=== PATIENT | female | born 1985 | race Caucasian/White ===

== ENCOUNTER 2023-02-05 02:40 | Emergency (ER) | payer OTHER, SELFPAY ==
[2023-02-05] VITALS (7 sets, daily range): BP systolic 91–111; BP diastolic 49–74; PULSE 69–96; RESP 13–15; TEMP 36.6; O2SAT 98–100
--- NOTE | ~2023-02-05 | CT_ITS ---
EXAMINATION: CTA chest PE protocol DATE: 02/05/2023 05:39 INDICATION: Midsternal chest pain. Shortness of breath. TECHNIQUE: Computed tomography angiography (CTA) of the chest was performed with 100 mL Omnipaque-350 intravenous contrast timed to evaluate the pulmonary arteries. Coronal maximum intensity projection 3D-reconstructions were created by the technologist. Automated exposure control and iterative reconst ruction technique were employed. The dose-length product was 217.32 mGy-cm. COMPARISON: None. FINDINGS: There is no pneumonia or pleural effusion. The heart size is normal. No pericardial effusio n. There is no pulmonary embolus. There is mild thoracic spondylosis. IMPRESSION: 1. No pulmonary embolus. Reviewed, dictated and finalized at location A. IMPRESSION: 1. No pulmonary embolus.
--- NOTE | ~2023-02-05 | XR_ITS ---
EXAMINATION: XR chest 1V portable DATE: 02/05/2023 05:02 INDICATION: Chest pain. TECHNIQUE: A single frontal view of the chest was obtained. COMPARISON: Chest CT 02/05/2023 FINDINGS: There is no pneumonia, pleural effusion, or pneumothorax. The heart size is normal. IMPRESSION: 1. No acute cardiopulmonary disease. Reviewed, dictated and finalized at location A.
--- NOTE | 2023-02-05 02:57 | ECG_ITS ---
Measurements Intervals [place] Rate: 70 P: 53 WA: 117 QRS: 64 QRSD: 88 T: 61 QT: 368 QTc: 399 Interpretive Statements SINUS RHYTHM WITH SHORT WA INTERVAL WITHIN NORMAL LIMITS INTERPRETATION BASED ON A DEFAULT AGE OF 40 YEARS NO PREVIOUS ECG AVAILABLE FOR COMPARISON Electronically Signed On 02-05-2023 15:51:37 CDT by Brendan Barbosa M.D.
[2023-02-05 05:01] LABS: Alanine Aminotransferase 55 U/L (6-35); Albumin Level 3.8 g/dL (3.5-5.1); Alkaline Phosphatase 126 U/L (38-126); Anion Gap 10 mmol/L (8-16); Aspartate Amino Transferase 31 U/L (14-36); Bilirubin,Total 0.4 mg/dL (0.2-1.3); Blood Urea Nitrogen 26 mg/dL (7-17); Calcium 9.5 mg/dL (8.4-10.2); Carbon Dioxide 22 mmol/L (22-30); Chloride 101 mmol/L (98-107); Estimated Glomerular Filt Rate > 60; Glucose 87 mg/dL (65-110); Lipase 148 U/L (23-300); Magnesium 1.8 mg/dL (1.6-2.3); NT Pro B Type Natriuretic Pept < 20 pg/mL (19.9-100); Potassium 3.9 mmol/L (3.4-5.0); Sodium 133 mmol/L (137-145); Troponin I < 0.012 ng/mL (0.000-0.034)
[2023-02-05 05:06] LABS: Basophils Percent Auto 0.4 % (0.2-1.2); Eosinophils Absolute Auto 0.4 K/mm3 (0-0.3); Eosinophils Percent Auto 3.8 % (0-4.4); Hematocrit 35.8 % (37.0-47.0); Hemoglobin 11.4 g/dL (12.0-15.0); Immature Granulocyte Absolute 0.07 K/mm3 (0.00-0.031); Immature Granulocyte Percent A 0.8 % (0-0.5); Immature Platelet Fraction Pct 5.9 % (0.9-11.2); Lymphocytes Absolute Auto 2.05 K/mm3 (0.9-3.2); Lymphocytes Percent Auto 22.5 % (18.3-44.2); Mean Corpuscular HGB Conc 31.8 g/dl (32-36); Mean Corpuscular Hemoglobin 25.7 pg (26-34); Mean Corpuscular Volume 80.6 fl (80-100); Mean Platelet Volume 10.9 fl (7.4-10.4); Monocytes Absolute Auto 0.7 K/mm3 (0.1-0.6); Neutrophils Absolute Auto 5.9 K/mm3 (1.3-6.7); Neutrophils Percent Auto 64.5 % (45.5-73.1); Platelet Count Result 350 k/mm3 (150-375); Red Blood Count 4.44 M/mm3 (4.2-5.4); Red Cell Distribution Width 17.4 % (11.5-14.5); White Blood Count 9.1 K/mm3 (4.5-10.0)
[2023-02-05 05:08] LABS: Prothrombin Time 13.1 Seconds (11.1-14.7)
[2023-02-05 05:09] LABS: D Dimer 3.37 ug/mL (<0.48); Partial Thromboplastin Time 26.4 SECONDS (22.3-36.8)
--- NOTE | 2023-02-05 05:25 | ED.GENADULT ---
HPI - General Adult General Chief complaint: Chest Pain History of Present Illness HPI narrative: Patient is a 37-year-old female who presents emergency department with chief complaint of chest pain. Patient reports that she has history of congestive heart failure after having preeclampsia patient reports that she has been taking her Lasix has been doing okay and tonight started having discomfort in her chest. The patient states the pain is sharp and reports that it is pleuritic. Review of Systems Review of Systems: A 10 system review of systems was completed on the patient and is negative except for what is stated in the HPI. Nursing and ancillary documentation was reviewed. Exam Narrative: GENERAL: Well-appearing, well-nourished, and in no acute distress. HEAD: Normocephalic, atraumatic. EYES: PERRLA and EOMI. ENT: Nares clear, no rhinorrhea or epistaxis. Mucous membranes moist. NECK: Supple. CHEST: Clear to auscultation. No respiratory distress. HEART: Regular rate and rhythm. No murmur heard. Normal peripheral pulses. ABDOMEN: Soft, nontender, nondistended, normal active bowel sounds. EXTREMITIES: Normal range of motion. No edema. SKIN: Warm, dry, no rash. NEURO: No focal deficits. Alert and oriented x3. PSYCH: Normal mood and affect. Course Course Emergency Course: Differential diagnoses ACS, PE, CHF exacerbation, pulmonary edema Laboratory studies were obtained and patient showed normal CBC electrolytes are within normal limits troponin was negative initial 1 lipase was 148 BNP was less than 20 D-dimer was elevated at 3.37 A PE study was ordered on the patient which showed no evidence of pulmonary embolism Vital Signs Vital signs: Vital Signs Temperature 36.6 C 02/05/23 04:57 Pulse Rate 79 02/05/23 04:57 Respiratory Rate 14 02/05/23 04:57 Blood Pressure 109/74 02/05/23 04:57 Pulse Oximetry 98 02/05/23 04:57 Oxygen Delivery Room Air 02/05/23 04:57 Temperature 36.6 C 02/05/23 04:57 Pulse Rate 74 02/05/23 06:45 Respiratory Rate 14 02/05/23 06:45 Blood Pressure 99/59 L 02/05/23 06:45 Pulse Oximetry 100 02/05/23 06:45 Oxygen Delivery Room Air 02/05/23 05:03 Medical Decision Making Vital Signs Vital Signs: Vital Signs Temperature 36.6 C 02/05/23 04:57 Pulse Rate 79 02/05/23 04:57 Respiratory Rate 14 02/05/23 04:57 Blood Pressure 109/74 02/05/23 04:57 Pulse Oximetry 98 02/05/23 04:57 Oxygen Delivery Room Air 02/05/23 04:57 Temperature 36.6 C 02/05/23 04:57 Pulse Rate 74 02/05/23 06:45 Respiratory Rate 14 02/05/23 06:45 Blood Pressure 99/59 L 02/05/23 06:45 Pulse Oximetry 100 02/05/23 06:45 Oxygen Delivery Room Air 02/05/23 05:03 Lab Data 02/05/23 03:00 02/05/23 03:00 Labs: Lab Results 02/05/23 02/05/23 Range/Units 03:00 06:32 WBC 9.1 (4.5-10.0) K/mm3 RBC 4.44 (4.2-5.4) M/mm3 Hgb 11.4 L (12.0-15.0) g/dL Hct 35.8 L (37.0-47.0) % MCV 80.6 (80-100) fl MCH 25.7 L (26-34) pg MCHC 31.8 L (32-36) g/dl RDW 17.4 H (11.5-14.5) % Plt Count 350 (150-375) k/mm3 MPV 10.9 H (7.4-10.4) fl Immature Gran % (Auto) 0.8 H (0-0.5) % Neut % (Auto) 64.5 (45.5-73.1) % Lymph % (Auto) 22.5 (18.3-44.2) % Falls % (Auto) 8.0 (2.6-8.5) % Eos % (Auto) 3.8 (0-4.4) % Baso % (Auto) 0.4 (0.2-1.2) % Lymph # (Auto) 2.05 (0.9-3.2) K/mm3 Falls # (Auto) 0.7 H (0.1-0.6) K/mm3 Eos # (Auto) 0.4 H (0-0.3) K/mm3 Baso # (Auto) 0.0 (0.0-0.1) K/mm3 Abs Immat Gran (auto) 0.07 H (0.00-0.031) K/mm3 Absolute Neuts (auto) 5.9 (1.3-6.7) K/mm3 Absolute Nucleated RBC 0.0 (0.0-0.012) K/mm3 Nucleated RBC % 0.0 (0.0-0.2) % % Immature Plt Fraction 5.9 (0.9-11.2) % PT 13.1 (11.1-14.7) Seconds INR 1.0 APTT 26.4 (22.3-36.8) SECONDS D-Dimer 3.37 H (<0.48) ug/mL Sodium 133 L (137-145) mmol/L Pot
[2023-02-05 07:00] LABS: Troponin I < 0.012 ng/mL (0.000-0.034)
== END 2023-02-05 07:17 | disposition home or self-care (01) ==
PROVIDERS: Emergency Provider Emergency Medicine
DX: R07.89 Other chest pain (principal); I50.9 Heart failure, unspecified
CPT/HCPCS: 36415; 71045; 71275; 80053; 83690; 83735; 83880; 84484; 85025; 85055; 85380; 85610; 85730; 93005; 99284; Q9967

== ENCOUNTER 2023-04-16 13:40 | Emergency (ER) | payer OTHER, SELFPAY ==
[2023-04-16 13:46] VITALS: BP 117/60; PULSE 91; RESP 20; TEMP 36.5; O2SAT 99
[2023-04-16] MEDS: SODIUM CHLORIDE 0.9% IV 1,000 ML 999 ML IV CONT (14:41)
[2023-04-16] MEDS: KETOROLAC 30 MG/ML VIAL (*BKC) IV PUSH (14:44)
[2023-04-16] MEDS: METOCLOPRAMIDE HCL INJ 10 MG/2 ML VIAL IV PUSH (14:44)
[2023-04-16] MEDS: diphenhydrAMINE HCl INJ 50 MG/ML VIAL 25 MG IV PUSH (14:44)
[2023-04-16] MEDS: MORPHINE SULFATE (*CRX) 4 MG/ML INJ IV PUSH (15:34)
--- NOTE | 2023-04-16 16:46 | ED.HA ---
HPI - Headache General Chief Complaint: Headache Stated Complaint: severe headache, neck and back pain Time Seen by Provider: 04/16/23 14:23 History of Present Illness HPI Narrative: Patient is a 37-year-old female with history of migraine headaches who presents ER with headache. Similar to migraine but more intense for her. Associate with photophobia. Global throbbing of the head. Reports some chills but no documented fevers. No numbness or weakness in arm or leg. No slurred speech. Patient tried her home migraine medication without improvement. She has not called her neurologist because they no longer take her insurance. Related Data Home Medications Medication Instructions Recorded Confirmed budesonide-formoterol HFA 160 inhalation 04/16/23 mcg-4.5 mcg/actuation aerosol inhaler (Symbicort) buspirone 10 mg tablet mg 04/16/23 clonazepam 0.5 mg tablet mg 04/16/23 duloxetine 40 mg capsule,delayed mg PO 04/16/23 release rimegepant 75 mg disintegrating mg 04/16/23 tablet ([facility] ODT) Allergies Allergy/AdvReac Type Severity Reaction Status Date / Time Sulfa (Sulfonamide AdvReac Hives Verified 04/16/23 13:54 Antibiotics) Review of Systems Review of Systems: All systems reviewed & are unremarkable except as noted in HPI and below Constitutional: Constitutional: Reports chills Eyes: Eyes: Reports photophobia Neurologic: Denies syncope, Reports headache(s), Denies focal weakness and Denies numbness PMFSH Past Medical History Medical History (Updated 04/16/23 @ 21:58 by Cresencio Encarnacion MD) Migraine Surgical History Surgical History (Updated 04/16/23 @ 21:58 by Cresencio Encarnacion MD) No pertinent past surgical history Exam Narrative: GENERAL: Uncomfortable-appearing, well-nourished, and in no acute distress. HEAD: Normocephalic, atraumatic. EYES: PERRL and EOMI. ENT: Mucous membranes moist. CHEST: Clear to auscultation. No respiratory distress. HEART: Regular rate and rhythm. Normal peripheral pulses. EXTREMITIES: Normal range of motion. No edema. SKIN: Warm, dry, no rash. NEURO: Alert and oriented x3. PSYCH: Normal mood and affect. Course Course Emergency Course: Headache resolved with migraine cocktail and morphine. Discharge home. Will give neurology follow-up. Vital Signs Vital signs: Vital Signs Temperature 97.7 F 04/16/23 13:46 Pulse Rate 91 04/16/23 13:46 Respiratory Rate 20 04/16/23 13:46 Blood Pressure 117/60 04/16/23 13:46 Pulse Oximetry 99 04/16/23 13:46 Oxygen Delivery Room Air 04/16/23 13:46 Temperature 97.7 F 04/16/23 13:46 Pulse Rate 88 04/16/23 17:06 Respiratory Rate 16 04/16/23 17:06 Blood Pressure 130/86 04/16/23 17:06 Pulse Oximetry 98 04/16/23 17:06 Oxygen Delivery Room Air 04/16/23 13:46 Discharge Plan Discharge Clinical Impression: Migraine Patient Disposition: Home, Self-Care Condition: Stable Instructions: Migraine Headache (ED) Additional Instructions: Return to the ER if you have fever over 101F, you cannot keep down food/water, or you lose consciousness. Prescriptions: New naproxen 375 mg tablet 375 mg PO BID Qty: 14 0RF No Action clonazepam 0.5 mg tablet buspirone 10 mg tablet budesonide-formoterol [Symbicort] 160-4.5 mcg/actuation HFA aerosol inhaler INHALATION duloxetine 40 mg capsule,delayed release(DR/EC) PO Nurtec ODT 75 mg tablet,disintegrating Follow-up/Referrals: PHYSICIAN,CUSTOMER ADVISOR [Non-Staff] - Claire Worrell MD [Physician] - 1 Week
[2023-04-16 17:05] VITALS: BP 140/74; PULSE 80; RESP 16; O2SAT 100
[2023-04-16 17:06] VITALS: BP 130/86; PULSE 88; RESP 16; O2SAT 98
== END 2023-04-16 17:06 | disposition home or self-care (01) ==
LOC: ANHED 17:00
PROVIDERS: Emergency Provider Emergency Medicine
DX: G43.909 Migraine, unspecified, not intractable, without status migrainosus (principal); Z79.899 Other long term (current) drug therapy
CPT/HCPCS: 96361; 96374; 96375; 99284; J1200; J1885; J2270; J2765; J7030